=== PATIENT | male | born 1990 | race Caucasian/White ===

== ENCOUNTER 2024-10-06 18:00 | Observation (INO) ==
--- NOTE | 2024-10-06 18:32 | EKG ---
Test Reason : elevated heart rate Blood Pressure : */* mmHG Vent. Rate : 143 BPM Atrial Rate : 147 BPM P-R Int : * ms QRS Dur : 72 ms QT Int : 224 ms P-R-T Axes : * -5 32 degrees QTc Int : 345 ms Atrial fibrillation Abnormal ECG No previous ECGs available Confirmed by Sarthak Barney MD ([id number]) on 10/07/2024 7:31:34 AM Referred By: Confirmed By: Sarthak Barney MD
[2024-10-06] MEDS: NS 1,000 ML IV 1,000 ML IV ONE (18:51)
[2024-10-06 19:01] LABS: MEAN PLATELET VOLUME 8.5 fL (7.4-11.0); RED CELL DISTRIBUTION WIDTH 13.6 % (11.6-16.5)
[2024-10-06] MEDS: CARDIZEM INJ 50 MG VIAL IVP ONE ×2 (19:09→20:48)
[2024-10-06 19:12] LABS: CREATININE 1.26 mg/dL (0.70-1.30); eGFR NON BLACK RACES > 60 (>60)
[2024-10-06 19:40] LABS: INR 0.93 (0.8-1.3)
--- NOTE | 2024-10-06 20:32 | DR.GENAD ---
HPI Time Seen Time Seen by Provider: 10/06/24 18:15 PCP Primary Care Physician: [email or web address] HPI Comment HPI Comment: Patient states that around 11 in the morning he started having some palpitations without chest pain after he had been drinking an energy drink. His took him him to a doctor's appointment where he was found to have an elevated blood pressure and heart rate and was given clonidine and aspirin. Patient was sent to the ER. At this time his heart rate is running about 130- 140 and his blood pressure is much lower. He is asymptomatic other than he can feel his heart racing. Denies any dizziness or shortness of breath. Denies chest pain. Complaint/Symptoms Chief Complaint:: Patient states around 11am he was at work at the [employer] ([employer]) he felt very hot he started drinking water he felt his heart racing denies any chest pain. His made him a dr appt which they just left at around 5pm where he was given a clonidine 0.1mg (stated his bp was 160/100 and HR was 175 and irregular in the office, asa 81mg. COVID-19 Coronavirus risk:travel/contact w/high risk person: No Has patient experienced Coronavirus symptoms: No Source History Provided: Patient Mode of Arrival Mode of Arrival: Ambulatory Timing Onset of Chief Complaint: 10/06/24 PMH PMH Past Medical History: No Past Medical History: Kidney Stones Past Surgical History: Yes Surgical History: Ortho Surgery Past Surgical History Comment: L ring finger Family History History of Family Medical Conditions: Yes Family Medical History: Diabetes Mellitus and Hypertension Social History Does patient currently use any type of tobacco product: No Have you used tobacco products in the last 12 months: No Type of Tobacco Use: None Does any household member use tobacco: No Alcohol Use: None Do you use any recreational Drugs:: No Lives With: Family Lives Where: Home Travel Risk Coronavirus risk:travel/contact w/high risk person: No Has patient experienced Coronavirus symptoms: No Infectious screening In the last 2 months have you had wt loss of >10#?: NO Have you had fever, night sweats or hemotysis?: No Have you traveled outside the country in the last 6 months?: No Isolation: Standard ROS Review of Systems Constitutional: No Symptoms Reported; negative Fever Eyes: No Symptoms Reported ENTM: No Symptoms Reported Respiratoy: No Symptoms Reported; negative Short of Breath or Wheezing Cardiovascular: See HPI and Palpitations; negative Chest Pain, Edema or Syncope Gastrointestinal/Abdominal: No Symptoms Reported Genitourinary: No Symptoms Reported Neurological: No Symptoms Reported Musculoskeletal: No Symptoms Reported Integumentary: No Symptoms Reported Hematologic/Lymphatic: No Symptoms Reported Endocrine: No Symptoms Reported Psychiatric: No Symptoms Reported All Other Systems: Reviewed and Negative PE Vital Signs Vitals: Vital Signs Temperature 98.0 F Pulse Rate [Left] 93 Pulse Rate [Left] 103 Pulse Rate [Left] 152 Pulse Rate [Left] 153 Pulse Rate 75 Pulse Rate 73 Pulse Rate 141 Pulse Rate 140 Pulse Rate 113 Pulse Rate 123 Pulse Rate 126 Pulse Rate 127 Pulse Rate 120 Pulse Rate 125 Pulse Rate 125 Pulse Rate 100 Pulse Rate 99 Pulse Rate 100 Pulse Rate 93 Pulse Rate 97 Pulse Rate 101 Pulse Rate 85 Pulse Rate 87 Pulse Rate 91 Pulse Rate 91 Pulse Rate 112 Pulse Rate 142 Pulse Rate 144 Pulse Rate 148 Pulse Rate 154 Respiratory Rate 18 Respiratory Rate 20 Blood Pressure [Left Arm] 133/79 Blood Pressure [Left Arm] 121/83 Blood Pressure [Left Arm] 122/82 Blood Pressure [Left Arm] 115/79 Blood Pressure 124/69 Blood Pressure 119/61 Blood Pressure 147/87 Blood Pressure 125/88 Blood Pressure 116/63 Blood Pressure 115/57 Blood Pressure 107/61 Blood Pressure 127/67 Blood Pressure 121/67 Blood Pressure 117/72 Blood Pressure 132/64 Blood Pressure 140/64 Blood Pressure 125/59 Blood Pressure 133/60 Blood Pressure 133/79 Blood Pressure 120/68 Blood Pressure 123/66 Blood Pressure 114/56 Blood Pressure 128/76 Blood Pressure 135/79 Blood Pressure 129/82 Blood Pressure 121/83 Blood Pressure 123/85 Blood Pressure 126/84 Blood Pressure 135/71 O2 Sat by Pulse Oximetry 99 O2 Sat by Pulse Oximetry 99 O2 Sat by Pulse Oximetry 99 O2 Sat by Pulse Oximetry 100 O2 Sat by Pulse Oximetry 99 O2 Sat by Pulse Oximetry 100 O2 Sat by Pulse Oximetry 100 O2 Sat by Pulse Oximetry 100 O2 Sat by Pulse Oximetry 99 O2 Sat by Pulse Oximetry 99 O2 Sat by Pulse Oximetry 100 O2 Sat by Pulse Oximetry 100 O2 Sat by Pulse Oximetry 98 O2 Sat by Pulse Oximetry 100 O2 Sat by Pulse Oximetry 100 O2 Sat by Pulse Oximetry 100 O2 Sat by Pulse Oximetry 100 O2 Sat by Pulse Oximetry 100 O2 Sat by Pulse Oximetry 100 O2 Sat by Pulse Oximetry 100 O2 Sat by Pulse Oximetry 100 O2 Sat by Pulse Oximetry 100 O2 Sat by Pulse Oximetry 100 O2 Sat by Pulse Oximetry 100 O2 Sat by Pulse Oximetry 100 O2 Sat by Pulse Oximetry 98 General Limitations: No Limitations General Appearance: Alert and In No Apparent Distress Head Head Exam: Normal Inspection Eyes Eye exam: Normal Appearance ENT ENT Exam: Normal Exam External Ear Exam: Normal External Inspection TM/Canal Exam: Bilateral: Normal Nose Exam: Normal Nose Exam Mouth Exam: Normal Inspection Throat Exam: Normal Inspection Neck Neck Exam: Normal Inspection Chest Chest Inspection: Normal Inspection Respiratory Respiratory Exam: Normal Lung Sounds Bilat Respiratory Exam: Bilateral: Clear to Auscultation Cardiovascular Cardiovascular Exam: Tachycardia and Irregular Rhythm Abdominal Exam Abdominal Exam: Normal Inspection, Normal Bowel Sounds and Soft Extremities Extremities Exam: Normal Inspection Back Back Exam: Normal Inspection Neurologic Neurological Exam: Alert and Oriented X3 Psychiatric Psychiatric Exam: Normal Affect and Normal Mood Skin Skin Exam: Warm, Dry, Intact and Normal Color COURSE Treatment Treatment: Patient with new onset A-fib. Discussed results of workup with patient. Suspect triggered by energy drink. Consultation Consultation Comments: Discussed case with Dr. Chen and he is agreeable to admission. [facility] Labs Reviewed Laboratory Results Reviewed?: Yes 10/06/24 18:25 10/06/24 18:25 Laboratory: WBC 8.6 X10^3/uL (3.6-10.0) 10/06/24 18: RBC 6.36 X10^6/uL (4.7-6.0) H 10/06/24 18:25 Hgb 17.7 g/dL (13.5-18.0) 10/06/24 18: Hct 52.6 % (42.0-54.0) 10/06/24 18: MCV 82.7 fL (80.0-100.0) 10/06/24 18: MCH 27.8 pg (27.0-34.0) 10/06/24 18: MCHC 33.6 g/dL (33.0-35.0) 10/06/24 18: RDW 13.6 % (11.6-16.5) 10/06/24 18: Plt Count 284 X10^3/uL (150.0-450.0) 10/06/24 18: MPV 8.5 fL (7.4-11.0) 10/06/24 18:25 Neut % (Auto) 72.0 % (42.0-75.0) 10/06/24 18:25 Lymph % (Auto) 20.7 % (21.0-51.0) L 10/06/24 18:25 Amelia % (Auto) 6.3 % (0.0-13.0) 10/06/24 18:25 Eos % (Auto) 0.5 % (0.9-2.9) L 10/06/24 18:25 Baso % (Auto) 0.5 % (0.2-1.0) 10/06/24 18:25 Neut # (Auto) 6.2 x10^3/uL (2.2-4.8) H 10/06/24 18: Lymph # (Auto) 1.8 X10^3/uL (1.3-2.9) 10/06/24 18:25 Amelia # (Auto) 0.5 x10^3/uL (0.3-0.8) 10/06/24 18:25 Eos # (Auto) 0.0 x10^3/uL (0.0-0.2) 10/06/24 18: Baso # (Auto) 0.0 X10^3/uL (0.0-0.1) 10/06/24 18: Absolute Nucleated RBC 0.1 /100WBC 10/06/24 18:25 PT 12.5 SECONDS (11.8-14.3) 10/06/24 18:25 INR Target Range - 10/06/24 18:25 INR 0.93 (0.8-1.3) 10/06/24 18:25 APTT 27.1 SECONDS (22.9-36.5) 10/06/24 18:25 PTT Comment - 10/06/24 18:25 Sodium 141 mmol/L (136-145) 10/06/24 18:25 Corrected Sodium TNP 10/06/24 18:25 Potassium 3.9 mmol/L (3.5-5.1) 10/06/24 18:25 Chloride 106 mmol/L (98-107) 10/06/24 18:25 Carbon Dioxide 29.3 mmol/L (21-32) 10/06/24 18:25 BUN 13 mg/dL (7-18) 10/06/24 18:25 Creatinine 1.26 mg/dL (0.70-1.30) 10/06/24 18:25 Est GFR (MDRD) Af Amer > 60 (>60) 10/06/24 18:25 Est GFR (MDRD) Non-Af > 60 (>60) 10/06/24 18:25 Glucose 99 mg/dL (65-99) 10/06/24 18:25 Calcium 8.8 mg/dL (8.5-10.1) 10/06/24 18:25 Corrected Calcium TNP 10/06/24 18: Magnesium 2.4 mg/dL (2.0-2.9) 10/06/24 18: Total Bilirubin 0.40 mg/dL (0.2-1.0) 10/06/24 18:25 AST 14 Units/L (15-37) L 10/06/24 18:25 ALT 31 Units/L (12-78) 10/06/24 18:25 Alkaline Phosphatase 57 Units/L (46-116) 10/06/24 18:25 Creatine Kinase 83 Units/L (39-308) 10/06/24 18:25 Troponin I High Sens 10.6 ng/L (4.0-60.0) 10/06/24 20:48 Total Protein 8.1 g/dL (6.4-8.2) 10/06/24 18: Albumin 4.3 g/dL (3.4-5.0) 10/06/24 18: Globulin 3.8 g/dL (2.5-4.5) 10/06/24 18:25 Albumin/Globulin Ratio 1.1 Ratio (1.1-2.1) 10/06/24 18:25 Specimen Type Random urine 10/06/24 20:51 Urine Color Yellow (YELLOW) 10/06/24 20:51 Urine Appearance Clear (CLEAR) 10/06/24 20:51 Urine pH 6.0 (5.0 - 8.0) 10/06/24 20:51 Ur Specific [place] 1.025 (1.000-1.030) 10/06/24 20:51 Urine Protein 1+ (NEGATIVE) 10/06/24 20:51 Urine Glucose (UA) Negative (NEGATIVE) 10/06/24 20:51 Urine Ketones Negative (NEGATIVE) 10/06/24 20:51 Urine Blood Negative (NEGATIVE) 10/06/24 20:51 Urine Nitrite Negative (NEGATIVE) 10/06/24 20:51 Urine Bilirubin Negative (NEGATIVE) 10/06/24 20:51 Urine Urobilinogen Normal (NORMAL) 10/06/24 20:51 Ur Leukocyte Esterase Negative (NEGATIVE) 10/06/24 20:51 Urine RBC None seen /HPF (0-3) 10/06/24 20:51 Urine WBC None seen /HPF (0-5) 10/06/24 20:51 Ur Squamous Epith Cells Rare /HPF (NEGATIVE) 10/06/24 20:51 Urine Bacteria Negative /HPF (NEGATIVE) 10/06/24 20:51 Ur Culture Indicated? No/not indicated 10/06/24 20:51 Urine Opiates Screen Negative (NEG=<300) 10/06/24 20:51 Urine Methadone Screen Negative (NEG=<300) 10/06/24 20:51 Ur Barbiturates Screen Negative (NEG=<200) 10/06/24 20:51 Ur Phencyclidine Scrn Negative (NEG=<25) 10/06/24 20:51 Ur Amphetamines Screen Negative (NEG=<1000) 10/06/24 20:51 U Benzodiazepines Scrn Negative (NEG=<200) 10/06/24 20:51 Urine Cocaine Screen Negative (NEG=<300) 10/06/24 20:51 U Marijuana (THC) Screen Negative (NEG=<50) 10/06/24 20:51 XRAY XRAY Interpreted by: Self (Chest x-ray reviewed and interpreted by myself. No acute cardiopulmonary findings noted.) EKG Rate: 143 Rhythm: Afib ST: Normal Opioid Opioid Risk Tool Age (Dev box if 16-45): Yes History of Preadolescent Sexual Abuse: No Total: 1 Total Score Risk Category: Low Risk Copyright: Zach HARTMAN predicting aberrant behaviors Discharge Plan Diagnosis Discharge Problem: Atrial fibrillation, new onset Discharge Plan Patient Disposition: 09 ADMITTED INPATIENT Condition: Stable Prescriptions: No Action testosterone cypionate 200 mg/mL oil 200 mg IM WEEKLY Health Concerns: Post Hospitalization: new medications and changes needed to prevent readmission or further decline. Pt educated and given instructions on all concerns. Plan of Treatment: Continue with present treatment and follow up plan. Pt is to keep follow up appointment as instructed and take medications as ordered. Orders to Discharge Patient Discharge Orders: Transfer (Routine); Ordered 10/06/24 Ordered By: Ion Barker Follow ups/Referrals Follow ups/Referrals: Karen Dears [Primary Care Provider, Unknown] - 3 days Instructions Stand Alone Forms: Find Help Web Site, Post Hospital Follow Up Care Print Language: MALAY
[2024-10-06 21:05] LABS: BLOOD/HEMOGLOBIN,URINE NEGATIVE (NEGATIVE); LEUKOCYTE ESTERASE ,URINE NEGATIVE (NEGATIVE); NITRITES,URINE NEGATIVE (NEGATIVE)
[2024-10-06 21:15] LABS: APPEARANCE,URINE CLEAR (CLEAR)
[2024-10-06 21:16] LABS: SQUAMOUS EPITHELIAL CELL,UR RARE /HPF (NEGATIVE)
[2024-10-06] MEDS ORDERED: ULTRAM PO PRN (21:53)
[2024-10-06] MEDS ORDERED: TYLENOL 325 MG TAB PO PRN (21:53)
[2024-10-06] MEDS ORDERED: ZOFRAN INJ 4 MG VIAL IVP PRN (21:53)
[2024-10-06] MEDS ORDERED: NORCO 5/325 MG TAB PO PRN (21:53)
[2024-10-06] MEDS: CARDIZEM INJ 50 MG VIAL ONE ×2 (21:54→21:55)
[2024-10-06] MEDS: CONSULT PHARMACY - POTASSIUM & MAGNESIUM XX SCH (21:55)
[2024-10-06 22:18] VITALS: BMI 30.9
[2024-10-07 05:13] LABS: MEAN PLATELET VOLUME 8.6 fL (7.4-11.0); RED CELL DISTRIBUTION WIDTH 13.8 % (11.6-16.5)
[2024-10-07 05:21] LABS: CHOL/HDL RATIO 3.1 (0.0-5.0); CREATININE 1.23 mg/dL (0.70-1.30); eGFR NON BLACK RACES > 60 (>60)
--- NOTE | 2024-10-07 07:40 | RAD ---
EXAM: CHEST, 1 VIEW HISTORY: Chest Pain; COMPARISON: No relevant prior studies were available for comparison at the time of interpretation. TECHNIQUE: CHEST, 1 VIEW FINDINGS: Chest: Lines and tubes: None Mediastinum: Cardiac and mediastinal shadow is within normal limits for size and contour. Pulmonary vessels: No pulmonary vascular congestion. Lung calles: No suspicious airspace opacity. Pleura: No effusion. No pneumothorax. Bones and soft tissues: No acute osseous or soft tissue abnormality. IMPRESSION: 1. No acute cardiopulmonary abnormality THIS IS AN ELECTRONICALLY VERIFIED FINAL REPORT 10/07/2024 7:37 AM - Electronically signed by Eze Robbins MD
[2024-10-07] MEDS: LOPRESSOR TAB 25 MG PO SCH (09:50)
[2024-10-07 10:45] VITALS: BP 146/73; PULSE 95; RESP 45; TEMP 97.7; O2SAT 97
== END 2024-10-07 11:00 | disposition home or self-care (01) ==
LOC: ICU 18:00 → ER 18:00 → ICU 21:45
PROVIDERS: ADMIT Internal Medicine; ATTEND Internal Medicine
DX: R00.0 Tachycardia, unspecified; I48.91 Unspecified atrial fibrillation; R00.2 Palpitations; E83.51 Hypocalcemia; R94.31 Abnormal electrocardiogram [ECG] [EKG]